=== PATIENT | female | born 1990 | race Caucasian/White ===

== ENCOUNTER 2025-04-08 12:34 | Emergency (ER) | payer OTHER, SELFPAY ==
[2025-04-08 12:55] VITALS: BP 116/79; PULSE 108; RESP 20; TEMP 36.4; O2SAT 97; BMI 28.2
--- NOTE | 2025-04-08 13:11 | ED_ITS ---
HPI - Abdominal Pain General Time Seen by Provider: 13:11 Date Seen: 04/08/25 Chief Complaint: Abdominal Pain Stated Complaint: Abdominal pain Time Seen by Provider: 04/08/25 13:06 Source: patient and RN notes reviewed Mode of arrival: ambulatory Limitations: no limitations History of Present Illness HPI narrative: This 34-year-old female is coming in with primary concern of abdominal pain but also did bring up right breast mass that is painful that developed recently as well. First Patient started with abdominal pain around 10 30-11 a.m. this morning. She was just sitting, works at a bank. Pain is diffuse, radiates across her abdomen. She feels bloated. She feels abdominal pain with breathing, makes her feel shaky and short of breath. She has had some recent diarrhea, no nausea or vomiting, no fevers or chills. She has not noted any urinary symptoms. Her last menstrual period was about 3 weeks ago, they do use condoms, does not believe that she would be . Pain is about 8/10 on presentation. She had a cholecystectomy in 2020 and abdominoplasty in August of 2023. She also notes that Sunday night, Sunday she started having pain in her right lower breast. She felt a lesion in there, it is quite painful. She has a neighbor that is an ER nurse in [place], palpated the lesion for her. She is awaiting clinic visit for this. She has noted no nipple drainage. She did attempt to breastfeed but had problems doing so in just really was not able to breastfeed her children. She has no history of mastitis. Again there are no fe vers or chills. It is painful enough that it is been interfering with her sleep. She has been trying ibuprofen. She notes this causes her quite a bit of anxiety. Related Data Previous Rx's ?Medication ?Instructions ?Recorded oxycodone 5 mg tablet 5 mg PO QHS PRN pain #7 tabs 04/08/25 Allergies Allergy/AdvReac Type Severity Reaction Status Date / Time No Known Drug Allergies Allergy Verified 04/08/25 14:10 Review of Systems Status of ROS Reports: 6 or more systems reviewed and unremarkable except as noted in History and below [facility] Surgical History (Updated 04/08/25 @ 13:47 by Anahy Gallego MD) History of abdominoplasty ?Z98.890 - Other specified postprocedural states (ICD-10) Status post cholecystectomy ?Z90.49 - Acquired absence of other specified parts of digestive tract (ICD- 10) Exam Const: Vital Signs, click to edit/add: Vital Signs - 24 hr 04/08/25 12:55 04/08/25 13:18 04/08/25 14:17 Temperature 97.6 F Pulse Rate 102 H Pulse Rate [Pulse Oximeter] 108 H Respiratory Rate 20 16 Blood Pressure 117/76 Blood Pressure [Ri ght Upper Arm] 116/79 Pulse Oximetry 97 97 96 Oxygen Delivery Me thod Room Air Room Air 04/08/25 15:55 Temperature Pulse Rate 102 H Pulse Rate [Pulse Oximeter] Respiratory Rate 14 Blood Pressure 105/82 Blood Pressure [Ri ght Upper Arm] Pulse Oximetry 98 Oxygen Delivery Me thod Room Air This 34-year-old female is alert, interactive, no apparent distress and very pleasant despite her level of discomfort. Sclera clear, face atraumatic. Lungs are clear, no wheezing or crackles, no accessory muscle use, no tachypnea. CV slightly fast but regular, no murmur, normal S1-S2, no S3-S4. Right breast appears normal, no nipple discharge, no overlying erythema. In the inferior right breast, patient has a very tender area that feels smooth, very tender, do wonder if it might be a cystic lesion but not very compressible (pain limits exam here) possibly more firm than general cyst feels; certainly could be fibroadenoma but these generally are not this tender and this seems less mobile with some inflammation of soft tissues. Her abdomen has bowel sounds, no concerning character to them. Her abdomen is tender, she complains of p eriumbilical tenderness, she has definite right lower quadrant tenderness. She does have some right upper quadrant tenderness as well. Not as much tenderness in the left side of the abdomen except on the left paraumbilical area. Do not feel any mass or organomegaly at this time. Documenting provider has reviewed patient's vital signs: yes Course Course ED Course: Have reviewed with patient that we will look at US of this breast to see if it is an abscess, radiologist is not here at this time so unable to characterize further at this time. Otherwise, need imaging of her abdomen to define etiology of her pain. Need to rule out surgical abdomen, need to consider etiologies like appendicitis, ectopic (she doubts but there is still a possibility). Will obtain appropriate labs. Will initiate IV fluids, pain management with morphine, give Zofran to prevent any nausea associated with the narcotic. She will be on pulse oximetry to monitor respiratory status since she is getting narcotics. Do need to confirm negative status in this p atient. She doesn't feel that she can urinate as went before coming in, may need to wait for serum HCG. Reevaluation(s) Time of Reevaluation #1: 14:38 Reevaluation #1: Have updated patient that the CT is showing right ovarian cyst, will obtain pelvic ultrasound. The breast imaging looks like this may be a solid lesion, radiology has told me that there is an opening with the radiologist tomorrow morning where they could do the mammogram and diagnostic ultrasound of the right breast. I have put the order in, will see if this can be done. Patient declining pain med at this point, did not want the morphine after all. Did offer her Toradol at this point but she declines. Time of Reevaluation #2: 16:08 Reevaluation #2: Have reviewed patient's pelvic ultrasound with her, there is a 3 cm simple cyst not requiring follow-up. It is possible that this was the cause of her pain, we did discuss how ovarian cysts can come on suddenly, cause pain initially and involute with time. This 1 is not concerning. We did discuss that we are trying to get her in for tomorrow for diagnostic mammogram and right breast ultrasound. She is having significant problem sleeping because of the right breast. Her pain in her abdomen has nearly subsided, we did not give her anything here. She states she was able to walk to the pelvic ultrasound, is feeling much better. This really would coincide with more of an ovarian cyst pain in my opinion. Plan will be to discharge her to home at this time. Will send her with some pain medication for bedtime for the breast. Consultations Consultation #1: Was finally able to get through to the on-call doctor at [facility]. Dr. Berman has kindly put the order in for the diagnostic bilateral mammogram in the right matt ast ultrasound. He is going to try to get a technology integration specialist on this to get the orders over here. We will see if we might be able to still get this approved for an appointment tomorrow that we have open here. I found out that I am unable to do it as I am an ER physician, cannot order this type of imaging for her out of the ER. Time: 15:57 Vital Signs Vital signs: Initial Vital Signs Temperature 97.6 F 04/08/25 12:55 Temperature Source Oral 04/08/25 12:55 Pulse Rate 108 H 04/08/25 12:55 Respiratory Rate 20 04/08/25 12:55 Blood Pressure 116/79 04/08/25 12:55 Blood Pressure Mean 91 04/08/25 12:55 Blood Pressure Position Sitting 04/08/25 12:55 Pulse Oximetry 97 04/08/25 12:55 Oxygen Delivery Method Room Air 04/08/25 12:55 Vital Signs Temperature 97.6 F 04/08/25 12:55 Pulse Rate 108 H 04/08/25 12:55 Respiratory Rate 20 04/08/25 12:55 Blood Pressure 116/79 04/08/25 12:55 Pulse Oximetry 97 04/08/25 12:55 Oxygen Delivery Method Room Air 04/08/25 12:55 Temperature 97.6 F 04/08/25 12:55 Pulse Rate 102 H 04/08/25 15:55 Respiratory Rate 14 04/08/25 15:55 Blood Pressure 105/82 04/08/25 15:55 Pulse Oximetry 98 04/08/25 15:55 Oxygen Delivery Method Room Air 04/08/25 15:55 Medications Administered Medications: Discontinued Medications Generic Name Dose Route Start Last Admin Trade Name Freq PRN Reason Stop Dose Admin Sodium Chloride 1,000 mls @ 500 mls/hr 04/08/25 13:21 04/08/25 15:28 0.9 % Sodium Chloride 1000 Ml IV 04/08/25 15:20 Infused .Q2H JONES Infusion Morphine Sulfate 4 mg 04/08/25 13:18 04/08/25 16:00 Morphine 4 Mg/Ml Inj IVP 04/08/25 13:19 Not Given ONCE ONE Ondansetron HCl 4 mg 04/08/25 13:18 04/08/25 16:00 Ondansetron 2 Mg/Ml Inj IVP 04/08/25 13:19 Not Given ONCE ONE MDM - Abdominal Pain Lab Data Attestation: I reviewed the patient's lab results. Labs: Lab Results 04/08/25 04/08/25 Range/Units 13:15 Unknown WBC 11.65 H (4.50-11.00) K/uL RBC 5.74 H (4.00-5.20) m/uL Hgb 15.6 (12.0-16.0) gm/dL Hct 47.0 (33.0-51.0) % MCV 82 (80-100) fL MCH 27 (26-34) pg MCHC 33 (32-36) gm/dL RDW Coeff of Nicole 14.7 (11.5-15.5) % Plt Count 334 (140-440) K/uL Neut % (Auto) 65.9 (42.0-72.0) % Lymph % (Auto) 25.8 (20-44) % [place] % (Auto) 7.0 (0.0-11.0) % Eos % (Auto) 0.8 (0.0-7.0) % Baso % (Auto) 0.3 (0.0-3.0) % Neut # (Auto) 7.70 H (1.7-7.0) K/uL Lymph # (Auto) 3.00 H (0.90-2.90) K/uL [place] # (Auto) 0.80 (0.00-0.90) K/UL Eos # (Auto) 0.10 (0.00-0.50) K/uL Baso # (Auto) 0.00 (0.00-0.30) K/uL Abs Immat Gran (auto) 0.00 (0.00-0.30) K/uL Imm/Tot Granulo (auto) 0.2 % Sodium 139 (135-149) mmol/L Potassium 3.9 (3.6-5.1) mmol/L Chloride 105 (96-114) mmol/L Carbon Dioxide 23 (20-32) mmol/L Anion Gap 11 (7-15) mEq/L BUN 7 (5-24) mg/dL Creatinine 0.7 (0.5-1.5) mg/dL Estimated Creat Clear 84.65 Estimated GFR 116 ml/min Glucose 70 (60-115) mg/dL Lactate 1.3 (0.5-1.9) mmol/L Calcium 9.5 (8.4-10.6) mg/dL Total Bilirubin 0.3 (0.1-1.5) mg/dL AST 30 (12-35) U/L ALT 25 (4-35) U/L Alkaline Phosphatase 84 (40-150) U/L C-Reactive Protein 4.4 H (0.5-1.0) mg/dL Total Protein 8.9 H (6.0-8.3) g/dL Albumin 4.7 (3.3-5.0) g/dL Lipase 98 (23-300) U/L HCG, Qual Negative (Negative) Urine Color Yellow (Yellow) Urine Appearance Clear (Clear) Urine pH 5.5 (5.0-8.5) Ur Specific [place] >= 1.030 (1.000-1.030) Urine Protein Negative (Negative) Urine Glucose (UA) Negative (Negative) Urine Ketones Negative (Negative) Urine Blood 1+ A (Negative) Urine Nitrite Negative (Negative) Urine Bilirubin Negative (Negative) Urine Urobilinogen 0.2 (0.2-1.0) Ur Leukocyte Esterase Trace A (Negative) Urine RBC 2-5 A (0-2) Urine WBC 5-10 A (0-5) Ur Squamous Epith Cells Many A (None-Few) Urine Bacteria Many A (None) Imaging Data CT scan - abdomen: Attestation: I have reviewed the pertinent imaging results. Radiologist's impression: Patient: JONNY MALIK Facility:?[facility] Patient ID:?[id number] Site Patient ID:?[id number]. Site :?1990 Study:?CT-Abdomen/Pelvis WITH 74 CC ISOVUE 370-04/08/2025 2:12:29 PM Ordering Physician:?Julián Higginbotham Final Report: INDICATION: Right lower quadrant abdominal pain. TECHNIQUE: CT abdomen and pelvis acquired with 100 cc Omnipaque 350 IV contrast. COMPARISON: None. FINDINGS: The lung bases are clear. The liver is unremarkable. The gallbladder is absent. No biliary ductal dilatation. Spleen is unremarkable. The pancreas is unremarkable without significant peripancreatic stranding or main ductal dilatation. Adrenal glands are unremarkable. The kidneys are without hydronephrosis or perinephric stranding. Urinary bladder is distended without soft tissue thickening or stra nding. There is stool throughout the colon. Scattered diverticular present without CT evidence of acute diverticulitis. The cecum extends to the left upper quadrant of the abdomen. The appendix is nondilated within the central abdomen no ancillary finding of appendicitis. There is some clustering of small bowel loops within the right abdomen. There is no abnormal thickening. No gross evidence of bowel obstruction. The stomach is partially distended. A prominent right adnexa is present with evidence of a right ovarian cyst measuring approximate 3.5 centimeters. No free air. No ascites. No organized drainable fluid collection. No lymphadenopathy is seen. Aorta is not aneurysmal. Linear soft tissue is noted within the subcutaneous fat of the anterior pelvis, likely representing chronic scarring. No fluid collection. Bone windows demonstrate no suspicious lytic or sclerotic lesion. No fracture. IMPRESSION: 1. Prominent right adnexa with evidence of a 3.5 centimeter right ovarian cyst. Follow-up pelvic ultrasound may be performed for further evaluation in this patient with reported right lower quadrant pain. 2. Abnormal orientation of the bowel without evidence of inflammation or bowel obstruction. Please note that all CT scans at this facility use dose modulation, iterative reconstruction, and/or weight-based dosing when appropriate to reduce radiation dose to as low as reasonably achievable. Dictated by Junior Merino MD @ 04/08/2025 2:28:16 PM (Electronic Signature) US right breast: Attestation: I have reviewed the pertinent imaging results. Radiologist's impression: Patient: JONNY MALIK Facility:?[facility] Patient ID:?[id number] Site Patient ID:?[id number]. Site :?1990 Study:?US-Breast Right RT BREAST LIMITED/ ABSCESS-04/08/2025 2:03:46 PM Ordering Physician:?Julián Higginbotham Final Report: RIGHT BREAST ULTRASOUND CLINICAL HISTORY: RIGHT breast pain/mass. ? abscess. COMPARISON: None. TECHNIQUE: Real-time ultrasound imaging of RIGHT breast with imaging documentation. FINDINGS: Targeted ultrasound performed in the area of concern at 6 o`clock 2-6 cm from the nipple. Heterogeneous dense breast tissue is present with some surrounding vascularity. No drainable fluid collection. IMPRESSION: Indeterminate heterogeneously dense tissue. RECOMMENDATIONS: Diagnostic BILATERAL mammography and unilateral RIGHT breast ultrasound follow- up recommended with dumpster operator present. BI-RADS Category 0: Need additional imaging evaluation Dictated by Maycol Peterson MD @ 04/08/2025 2:20:26 PM jj/Dictated by: Maycol Peterson MD @ 04/08/2025 2:20:00 PM (Electronic Signature) US pelvic: Attestation: I have reviewed the pertinent imaging results. Radiologist's impression: Patient: JONNY MALIK Facility:?[facility] Patient ID:?[id number] Site Patient ID:?[id number]. Site :?1990 Study:?US-Pelvis TA/TV-04/08/2025 3:18:31 PM Ordering Physician:Eduardo Higginbotham Final Report: Indication: Right ovarian cyst Technique: Ultrasound pelvis transabdominal and transvaginal for better assessment of the endometrium. Real-time sonographic images with spectral and color Doppler imaging of the ovaries were obtained. Comparison: Same day CT abdomen and pelvis with contrast. Findings: Uterus: Size: 8.8 x 5.5 x 6.3 cm. Mass: No. Endometrium: Transvaginal imaging was performed to better evaluate the endometri um. Thickness: 3.3 mm. Mass or fluid collection: No. Right ovary: Size: 4.1 x 3.3 x 2.8 cm. Mass: Simple cyst measures 3.0 x 2.7 x 2.5 centimeters. Blood flow: Normal arterial and venous blood flow. Left ovary: Size: 4.1 x 1.8 x 2.9 cm. Mass: No. Blood flow: Normal arterial and venous blood flow. Cul-de-sac and adnexa: Significant free Fluid: No. Mass: No. Impression: Simple ovarian cyst measures up to 3 centimeters in size, for which no sonographic follow-up is required. Dictated by Christianne Sosa MD @ 04/08/2025 3:45:35 PM (Electronic Signature) Discharge Plan Discharge Clinical Impression: Simple ovarian cyst Breast mass, right Qualifiers: Breast mass location: overlapping quadrants Qualified Code(s): N63.15 - Unspecified lump in the right breast, overlapping quadrants Patient Disposition: Home, Self-Care Condition: Stable Instructions: Ovarian Cyst (ED), Breast Mass (ED) Additional Instructions: Hopefully you will get a call from our Radiology Department to get scheduled for the diagnostic bilateral mammogram and the right breast ultrasound with the radiologist. It is possible that you may get a call from your clinic if we cannot get this done tomorrow. I believe prior authorization has to happen 1st. I have written for oxycodone to be used at bedtime to help you sleep because of the pain in the right breast. Hopefully the ovary cyst will not cause you too much pain at this point. Can try some baseline Tylenol or ibuprofen per bottle directions. If you do develop severe abdominal pain, if it is associated with fever or vomiting, do recommend re-evaluation. Work note provided for you. Activity Level: Activity as Tolerated Prescriptions: New oxycodone 5 mg tablet 5 mg PO QHS PRN (Reason: pain) Qty: 7 0RF Follow Up/Referrals: Rubi Guerra DO [Primary Care Provider, Family Practice] Stand Alone Forms: [facility] Info Instructions
[2025-04-08 13:18] VITALS: O2SAT 97
--- NOTE | 2025-04-08 13:18 | CRLHL7_ITS ---
For Patients: As a result of the Century Cures Act, medical imaging exams and procedure reports are released immediately into your electronic medical record. You may view this report before your referring provider. If you have questions, please contact your health care provider. INDICATION: Right lower quadrant abdominal pain. TECHNIQUE: CT abdomen and pelvis acquired with 100 cc Omnipaque 350 IV contrast. COMPARISON: None. FINDINGS: The lung bases are clear. The liver is unremarkable. The gallbladder is absent. No biliary ductal dilatation. Spleen is unremarkable. The pancreas is unremarkable without significant peripancreatic stranding or main ductal dilatation. Adrenal glands are unremarkable. The kidneys are without hydronephrosis or perinephric stranding. Urinary bladder is distended without soft tissue thickening or stranding. There is stool throughout the colon. Scattered diverticular present without CT evidence of acute diverticulitis. The cecum extends to the left upper quadrant of the abdomen. The appendix is nondilated within the central abdomen no ancillary finding of appendicitis. There is some clustering of small bowel loops within the right abdomen. There is no abnormal thickening. No gross evidence of bowel obstruction. The stomach is partially distended. A prominent right adnexa is present with evidence of a right ovarian cyst measuring approximate 3.5 centimeters. No free air. No ascites. No organized drainable fluid collection. No lymphadenopathy is seen. Aorta is not aneurysmal. Linear soft tissue is noted within the subcutaneous fat of the anterior pelvis, likely representing chronic scarring. No fluid collection. Bone windows demonstrate no suspicious lytic or sclerotic lesion. No fracture. IMPRESSION: 1. Prominent right adnexa with evidence of a 3.5 centimeter right ovarian cyst. Follow-up pelvic ultrasound may be performed for further evaluation in this patient with reported right lower quadrant pain. 2. Abnormal orientation of the bowel without evidence of inflammation or bowel obstruction. Please note that all CT scans at this facility use dose modulation, iterative reconstruction, and/or weight-based dosing when appropriate to reduce radiation dose to as low as reasonably achievable. Dictated by Junior Merino MD @ 04/08/2025 2:28:16 PM (Electronically Signed)
--- NOTE | 2025-04-08 13:18 | CRLHL7_ITS ---
For Patients: As a result of the Cures Act, medical imaging exams and procedure reports are released immediately into your electronic medical record. You may view this report before your referring provider. If you have questions, please contact your health care provider. RIGHT BREAST ULTRASOUND CLINICAL HISTORY: RIGHT breast pain/mass. ? abscess. COMPARISON: None. TECHNIQUE: Real-time ultrasound imaging of RIGHT breast with imaging documentation. FINDINGS: Targeted ultrasound performed in the area of concern at 6 o`clock 2-6 cm from the nipple. Heterogeneous dense breast tissue is present with some surrounding vascularity. No drainable fluid collection. IMPRESSION: Indeterminate heterogeneously dense tissue. RECOMMENDATIONS: Diagnostic BILATERAL mammography and unilateral RIGHT breast ultrasound follow-up recommended with blocker automatic present. BI-RADS Category 0: Need additional imaging evaluation Dictated by Maycol Peterson MD @ 04/08/2025 2:20:26 PM /Dictated by: Maycol Peterson MD @ 04/08/2025 2:20:00 PM (Electronically Signed)
[2025-04-08 13:36] LABS: Appearance Urine Clear (Clear)
[2025-04-08 13:42] LABS: Hematocrit* 47.0 % (33.0-51.0); Hemoglobin* 15.6 gm/dL (12.0-16.0); Immature Granulocytes Pct Auto 0.2 %; Lymphocytes Absolute Auto 3.00 K/uL (0.90-2.90); Mean Corpuscular HGB Conc 33 gm/dL (32-36); Mean Corpuscular Hemoglobin 27 pg (26-34); Mean Corpuscular Volume 82 fL (80-100); RDW Coefficient of Variation % 14.7 % (11.5-15.5); Red Blood Count* 5.74 m/uL (4.00-5.20); White Blood Count* 11.65 K/uL (4.50-11.00)
[2025-04-08 13:43] LABS: Immature Granulocytes Abs Auto 0.00 K/uL (0.00-0.30)
[2025-04-08 13:44] LABS: Slide Review Reflex No
[2025-04-08 13:46] LABS: Lactate* 1.3 mmol/L (0.5-1.9)
[2025-04-08 13:50] LABS: Albumin* 4.7 g/dL (3.3-5.0); Chloride* 105 mmol/L (96-114)
[2025-04-08 13:51] LABS: Potassium* 3.9 mmol/L (3.6-5.1); Sodium* 139 mmol/L (135-149)
[2025-04-08 13:53] LABS: Alanine Aminotransferase* 25 U/L (4-35); Aspartate Amino Transferase* 30 U/L (12-35); Blood Urea Nitrogen* 7 mg/dL (5-24); Creatinine* 0.7 mg/dL (0.5-1.5); Est. Creatinine Clearance* 84.65; Estimated Glomerular Filt Rate 116 ml/min
[2025-04-08 13:54] LABS: Alkaline Phosphatase* 84 U/L (40-150); Anion Gap 11 mEq/L (7-15); Bilirubin Total* 0.3 mg/dL (0.1-1.5); Calcium* 9.5 mg/dL (8.4-10.6); Carbon Dioxide* 23 mmol/L (20-32); Glucose* 70 mg/dL (60-115); Total Protein* 8.9 g/dL (6.0-8.3)
[2025-04-08 13:55] LABS: HCG Qualitative Serum* Negative (Negative)
[2025-04-08 14:17] VITALS: BP 117/76; PULSE 102; RESP 16; O2SAT 96
--- NOTE | 2025-04-08 14:37 | CRLHL7_ITS ---
For Patients: As a result of the Century Cures Act, medical imaging exams and procedure reports are released immediately into your electronic medical record. You may view this report before your referring provider. If you have questions, please contact your health care provider. Indication: Right ovarian cyst Technique: Ultrasound pelvis transabdominal and transvaginal for better assessment of the endometrium. Real-time sonographic images with spectral and color Doppler imaging of the ovaries were obtained. Comparison: Same day CT abdomen and pelvis with contrast. Findings: Uterus: Size: 8.8 x 5.5 x 6.3 cm. Mass: No. Endometrium: Transvaginal imaging was performed to better evaluate the endometrium. Thickness: 3.3 mm. Mass or fluid collection: No. Right ovary: Size: 4.1 x 3.3 x 2.8 cm. Mass: Simple cyst measures 3.0 x 2.7 x 2.5 centimeters. Blood flow: Normal arterial and venous blood flow. Left ovary: Size: 4.1 x 1.8 x 2.9 cm. Mass: No. Blood flow: Normal arterial and venous blood flow. Cul-de-sac and adnexa: Significant free Fluid: No. Mass: No. Impression: Simple ovarian cyst measures up to 3 centimeters in size, for which no sonographic follow-up is required. Dictated by Christianne Sosa MD @ 04/08/2025 3:45:35 PM (Electronically Signed)
[2025-04-08 15:55] VITALS: BP 105/82; PULSE 102; RESP 14; O2SAT 98
== END 2025-04-08 16:27 | disposition home or self-care (01) ==
PROVIDERS: Emergency Provider Family Medicine; PCP Family Medicine
DX: N63.15 Unspecified lump in the right breast, overlapping quadrants (principal); N83.201 Unspecified ovarian cyst, right side
CPT/HCPCS: 36415; 74177; 76642; 76830; 76856; 80053; 81001; 83605; 83690; 84703; 85025; 86140; 87086; 94761; 99284; 99285; J7030; Q9967

== ENCOUNTER 2025-04-21 10:23 | Outpatient (CLI) | payer OTHER, SELFPAY ==
--- NOTE | 2025-04-21 10:45 | CRLHL7_ITS ---
For Patients: As a result of the Century Cures Act, medical imaging exams and procedure reports are released immediately into your electronic medical record. You may view this report before your referring provider. If you have questions, please contact your health care provider. BILATERAL DIAGNOSTIC MAMMOGRAM WITH COMPUTER-AIDED DETECTION AND TOMOSYNTHESIS RIGHT BREAST ULTRASOUND CLINICAL HISTORY: RIGHT breast lump. COMPARISON: Ultrasound 04/08/2025. TECHNIQUE: Digital BILATERAL mammogram in four projections with computer-aided detection. Tomosynthesis was used in this interpretation. Real-time ultrasound imaging of RIGHT breast with imaging documentation. Scanning was performed by both the technologist and the radiologist. BREAST COMPOSITION: There are scattered areas of fibroglandular density. FINDINGS: BILATERAL mammogram images demonstrate no architectural distortion or suspicious calcifications. No adenopathy. Targeted RIGHT breast ultrasound performed. At 6 o`clock 3 cm from the nipple there is a solid lobular hypoechoic mass with heterogeneous echotexture which measures 1.9 x 1.1 x 1.7 cm. IMPRESSION: Indeterminate solid structure RIGHT breast 6 o`clock, 3 cm from the nipple, which measures 1.9 cm. RECOMMENDATIONS: Ultrasound-guided core needle biopsy. The [facility] will contact the patient for follow-up. A lay language report of this examination will be provided to the patient. BI-RADS Category 4: Suspicious. Dictated by Maycol Peterson MD @ 04/21/2025 11:20:10 AM /sp SP/Dictated by: Maycol Peterson MD @ 04/21/2025 11:20:00 AM (Electronically Signed)
--- NOTE | 2025-04-21 11:15 | CRLHL7_ITS ---
For Patients: As a result of the Century Cures Act, medical imaging exams and procedure reports are released immediately into your electronic medical record. You may view this report before your referring provider. If you have questions, please contact your health care provider. PLEASE SEE BILATERAL BREAST DIAGNOSTIC MAMMOGRAM PERFORMED SAME DAY. CRL:sp SP/Dictated by: Maycol Peterson MD @ 04/21/2025 11:34:00 AM (Electronically Signed)
== END 2025-04-21 10:24 | disposition home or self-care (01) ==
LOC: MAMMO 10:24
PROVIDERS: PCP Family Medicine; Visit Provider Family Medicine
DX: N63.10 Unspecified lump in the right breast, unspecified quadrant (principal)
CPT/HCPCS: 76642; 77066; G0279